=== PATIENT | male | born 1995 | race Caucasian/White ===

== ENCOUNTER 2016-10-20 10:56 | Emergency (ER) | payer BC ==
[~2016-10-20] VITALS: Ht 157.5 cm; Wt 68.5 kg
[2016-10-20 11:00] VITALS: Ht 157.5 cm; Wt 68.5 kg
[2016-10-20] MEDS ORDERED: IBUP-1542 PO (11:49)
--- NOTE | 2016-10-20 12:26 | ERD ---
ER Documentation Chief Complaint Date/Time DATE: 10/20/16 TIME: 12:01 Chief Complaint Complains of right hand and arm pain x 4 days HPI 21-year-old male complaining of pain in the right hand and the right arm 4 days. 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 Patient reports shooting pain up his arm when he is trying to flex his fingers. He also reports numbness tingling in his index and middle fingers. Denies any trauma. ROS All systems reviewed and are negative except as per history of present illness. Medications Home Meds Active Scripts Ibuprofen* (Motrin*) 600 Mg Tab, 600 MG PO Q6H Y for PAIN AND OR ELEVATED TEMP, #30 TAB Prov:JOANN MOLINA. 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 Allergies Allergies: Coded Allergies: No Known Allergy (Unverified , 10/20/16) PMhx/Soc Medical and Surgical Hx: pt denies Medical Hx, pt denies Surgical Hx Hx Alcohol Use: No Hx Substance Use: No Hx Tobacco Use: No Smoking Status: Never smoker Physical Exam Vitals Vital Signs Date Time Temp Pulse Resp B/P Pulse Ox O2 Delivery O2 Flow Rate FiO2 10/20/16 11:00 98.3 77 20 149/88 99 Physical Exam General: Well-developed, well-nourished, conscious and coherent, in no distress Skin: Warm and dry without rash, good texture and turgor Head: Normocephalic without evidence of trauma Eyes: Sclera and conjunctivae normal; pupils equal, round, and reactive to light; extraocular movements are intact Chest: Normal AP diameter. Good expansion without retractions. Nontender. Lungs are clear to auscultate bilaterally with good tidal volume Heart: Regular rate and rhythm. No murmur, rub, or gallops heard Extremities: Limited flexion and reduced strength of the right hand. Positive Tinel's and Phalen's signs on the right. No clubbing, cyanosis, or edema. Peripheral pulses are intact. Sensation intact Neuro: Alert and oriented 4, GCS 15. Cranial nerves grossly intact. Motor and sensory exams nonfocal. Moves all extremities. Speech clear. Gait normal Procedures/MDM 29-year-old male present ED with right hand pain 4 days. He is history exam findings consistent with carpal tunnel syndrome, likely secondary to repetitive stress from work. The area of injury was immobilized with a Velcro wrist splint. Patient was noted to be comfortable and neurovascularly intact both before and after the immobilization. Patient advised to wear his splint continuously for at least one month, and follow-up with her PCP. I doubt wrist fracture or dislocation. Patient appears well, stable for discharge and outpatient management. Medical decision making shared with patient and family. Education provided to patient and family. Patient and family expressed understanding of the plan. Medications on discharge: Ibuprofen. Follow-up: Primary care provider in 2-3 days or return to ED if worse. Departure Diagnosis: Primary Impression: Carpal tunnel syndrome of right wrist Condition: Good Patient Instructions: What Is Carpal Tunnel Syndrome (CTS)? Referrals: [facility] YOU HAVE RECEIVED A MEDICAL SCREENING EXAM AND THE RESULTS INDICATE THAT YOU DO NOT HAVE A CONDITION THAT REQUIRES URGENT TREATMENT IN THE EMERGENCY DEPARTMENT. FURTHER EVALUATION AND TREATMENT OF YOUR CONDITION CAN WAIT UNTIL YOU ARE SEEN IN YOUR DOCTORS OFFICE WITHIN THE NEXT 1-2 DAYS. IT IS YOUR RESPONSIBILITY TO MAKE AN APPOINTMENT FOR FOLOW-UP CARE. IF YOU HAVE A PRIMARY DOCTOR --you should call your primary doctor and schedule an appointment IF YOU DO NOT HAVE A PRIMARY DOCTOR YOU CAN CALL OUR PHYSICIAN REFERRAL HOTLINE AT IF YOU CAN NOT AFFORD TO SEE A PHYSICIAN YOU CAN CHOSE FROM THE FOLLOWING [facility] [id number] [facility]. [facility] [address] [facility] [address] [facility] [facility] [address] [facility] [facility] [address] [facility] [facility]. [address] Additional Instructions: Call your primary care doctor TOMORROW for an appointment during the next 1 WEEK.Tell the stenographer secretary that you were referred from this facility.See the doctor sooner or return here if your condition worsens before your appointment time. JOANN MOLINA NP Oct 20, 2016 12:26
== END 2016-10-20 11:56 | disposition home or self-care (01) ==
LOC: FTE 10:56
DX: G56.01 Carpal tunnel syndrome, right upper limb (principal)
CPT/HCPCS: 29125; Z7502